=== PATIENT | female | born 1945 | race Two or more races ===

== ENCOUNTER 2025-04-28 10:30 | Inpatient (IN) | payer OTHER, MEDICAID ==
[~2025-04-28] VITALS: Ht 162.6 cm; Wt 70.0 kg
--- NOTE | 2025-04-28 10:40 | ECG ---
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
--- NOTE | 2025-04-28 10:50 | ED.PDOC ---
HPI (NEURO) HPI Comments 79 y.o female with PMHx of hyperlipidemia, Vertigo, and HTN, presents to the ED via EMS for a chief complaint of dizziness associated with nausea and vomiting that started 2 weeks ago but has progressively worsened. Patient reports unable to do activities as she is unable to balance herself when attempting to get up. Patient reports episode today has been worse than previous ones, states she took her vertigo medication (meclizine) this morning but had no relief. Patient also reports recent diarrhea but none today. Patient was given 4mg of Zofran ODT by paramedics on scene which relieved the nausea. She denies any recent falls, dysuria, pain, fever, chills. Per EMS, patient states she receives some sort of ear injection to treat Vertigo, unknown medication. 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 History Family History Family History: Reviewed,noncontributory to illness Social History Smoker: Non-Smoker Alcohol: Denies ETOH Use Drugs: Denies Drug Use Lives In: Home Constitutional: denies: chills, diaphoresis, fatigue, fever, malaise, sweats, weakness, others EENTM: denies: blurred vision, double vision, ear bleeding, ear discharge, ear drainage, ear pain, ear ringing, eye pain, eye redness, hearing loss, mouth pain, mouth swelling, nasal discharge, nose bleeding, nose congestion, nose pain, photophobia, tearing, throat pain, throat swelling, voice changes, others Respiratory: denies: cough, hemoptysis, orthopnea, SOB at rest, shortness of breath, SOB with excertion, stridor, wheezing, others Cardiovascular: denies: chest pain, dizzy spells, diaphoresis, Dyspnea on exertion, edema, irregular heart beat, left arm pain, lightheadedness, palpitations, PND, syncope, others Gastrointestinal: reports: nausea, vomiting; denies: abdomen distended, abdominal pain, blood streaked bowels, constipated, diarrhea, dysphagia, difficulty swallowing, hematemesis, melena, poor appetite, poor fluid intake, rectal bleeding, rectal pain, others Genitourinary: denies: abnormal vagina bleeding, burning, dyspareunia, dysuria, flank pain, frequency, hematuria, incontinence, pain, , vagina discharge, urgency, others Neurological: reports: dizziness; denies: fainting, headache, left sided numbness, left sided weakness, numbness, paresthesia, pre-existing deficit, right sided numbness, right sided weakness, seizure, speech problems, tingling, tremors, weakness, others Musculoskeletal: denies: back pain, gout, joint pain, joint swelling, muscle pain, muscle stiffness, neck pain, others Integumetry: denies: bruises, change in color, change in hair/nails, dryness, laceration, lesions, lumps, rash, wounds, others Allergic/Immunocompromised: denies: Difficulty Healing, Frequent Infections, Hives, Itching, others Hematologic/Lymphatic: denies: anemia, blood clots, easy bleeding, easy bruising, swollen glands, others Endocrine: denies: excessive hunger, excessive sweating, excessive thirst, excessive urination, flushing, intolerance to cold, intolerance to heat, unexplained weight gain, unexplained weight loss, others Psychiatric: denies: anxiety, bipolar disorder, depression, hopeless, panic disorder, schizophrenia, sleepless, suicidal, others All Other Systems: Reviewed and Negative Physical Exam General Appearance: No Apparent Distress, Obese HEENT: Other (Pupils and face symmetric. Moist mucous membranes. ) Neck: Full Range of Motion, Normal Inspection Respiratory: Lungs Clear, No Accessory Muscle Use, No Respiratory Distress, Normal Breath Sounds Cardiovascular: No Edema, No JVD, Regular Rate/Rhythm Breast Exam: Deferred Gastrointestinal: Non Tender, Soft Genitalia: Deferred Pelvic: Deferred Rectal: Deferred Extremities: Normal inspection, Normal range of motion, Non-tender, No pedal edema Neurologic: Alert (Oriented x4), Normal Affect, Normal Mood, Other (Eye opening and head movement reproduces dizziness symptoms) Cerebellar Function: NOT DONE Reflexes: NOT DONE Skin: Dry, Normal Color, Warm Lymphatic: NOT DONE EKG EKG : Comments Sinus rhythm, rate 71, normal intervals, left axis deviation, possible old i nferior or anteroseptal infarct, nonspecific T change Was a procedure done? Was a procedure done?: No Differential Diagnosis (SZ) General Weakness: CVA, Dehydration, Electrolyte imbalance, Labyrinthitis, Meniere's disease, TIA, VBI, Vertigo: central, Vertigo: peripheral, Vestibular neuronitis, Other (Infection such as UTI, anemia, arrhythmia, ID, among others) X-Ray, Labs, Meds, VS Vital Signs Date Time Temp Pulse Resp B/P (MAP) Pulse Ox O2 Delivery O2 Flow Rate FiO2 04/28/25 12:00 55 04/28/25 11:42 98.7 67 12 152/66 (94) 94 98.7 04/28/25 11:42 64 12 94 Nasal Cannula* 2 28 04/28/25 10:36 71 04/28/25 10:33 98.5 76 18 160/76 (104) 95 98.5 Lab Test 04/28/25 11:43 04/28/25 10:49 Range/Units Troponin I High Sensitivity 59 *H 59 *H </=34 ng/L White Blood Count 6.4 4.4-10.8 10^3/uL Red Blood Count 4.71 4.0-5.20 10^6/uL Hemoglobin 15.2 12.2-16.2 g/dL Hematocrit 43.7 36.0-46.0 % Mean Corpuscular Volume 92.9 80.0-100.0 fL Mean Corpuscular Hemoglobin 32.3 H 28.0-32.0 pg Mean Corpuscular Hemoglobin Concent 34.7 32.0-36.0 g/dL Red Cell Distribution Width 13.6 11.8-14.3 % Platelet Count 247 140-450 10^3/uL Mean Platelet Volume 8.1 6.9-10.8 fL Neutrophils (%) (Auto) 72.4 37.0-80.0 % Lymphocytes (%) (Auto) 22.3 10.0-50.0 % Monocytes (%) (Auto) 4.1 0.0-12.0 % Eosinophils (%) (Auto) 0.4 0.0-7.0 % Basophils (%) (Auto) 0.8 0.0-2.0 % Neutrophils # (Auto) 4.6 1.6-8.6 10 ^3/uL Lymphocytes # (Auto) 1.4 0.4-5.4 10 ^3/uL Monocytes # (Auto) 0.3 0-1.3 10 ^3/uL Eosinophils # (Auto) 0 0-0.8 10 ^3/uL Basophils # (Auto) 0.1 0-0.2 10 ^3/uL Nucleated Red Blood Cells 0.1 % Sodium Level 143 136-145 mmol/L Potassium Level 3.0 L 3.5-5.1 mmol/L Chloride Level 106 98-107 mmol/L Carbon Dioxide Level 27 20-31 mmol/L Anion Gap 10 5-15 Blood Urea Nitrogen 18 9-23 mg/dL Creatinine 0.74 0.550-1.02 mg/dL Glomerular Filtration Rate Calc 83 >90 mL/min BUN/Creatinine Ratio 24.3 H 10.0-20.0 Serum Glucose 148 H 74-106 mg/dL Calcium Level 9.8 8.7-10.4 mg/dL Current Medications Medications (Trade) Dose Ordered Sig/Vida Route Start Time Stop Time Status Last Admin Lorazepam (Ativan Inj) 1 mg ONCE ONCE IV 04/28/25 10:45 04/28/25 10:46 DC 04/28/25 11:28 Sodium Chloride 500 ml @ 500 mls/hr Q1H ONCE IV 04/28/25 10:45 04/28/25 11:44 DC 04/28/25 11:29 Potassium Bicarbonate (Klor-Con/Ef) 50 meq ONCE ONCE PO 04/28/25 12:30 04/28/25 12:40 DC 04/28/25 13:27 PROCEDURE(s): HWOCT - HEAD WITHOUT CONTRAST REASON: severe vertigo ORDER NUMBER(s): [id number], ACCESSION NUMBER(s): [id number] CT HEAD WITHOUT CONTRAST Indication: severe vertigo EXAM DATE: 04/28/2025 11:41 AM COMPARISON: None TECHNIQUE: CT of the head without intravenous contrast. RADIATION DOSE: CTDIvol: 51.09 mGy, DLP: 820.21 mGy*cm FINDINGS: There is no intracranial hemorrhage. There is no extra-axial fluid, mass, mass effect or midline shift. The ventricles are midline and normal in size. Basilar cisterns are patent. There are mild periventricular and subcortical white matter chronic microvascular ischemic changes. The paranasal sinuses and mastoids are well-pneumatized. Imaged portion of the orbits are unremarkable. IMPRESSION: 1. No intracranial hemorrhage or mass effect. 2. Mild chronic microvascular ischemic changes. X-Ray, Labs, Meds, VS Comment 79-year-old female with a history of vertigo and dyslipidemia presenting with severe vertigo despite taking meclizine Vitals remarkable for BP 160/76 Exam remarkable for reproducible severe dizziness with eye opening and head movement Rhythm strip independently interpreted by me: Sinus rhythm, rate 71, no ectopy. CT head IMPRESSION: 1. No intracranial hemorrhage or mass effect. 2. Mild chronic microvascular ischemic changes. CBC unremarkable, basic metabolic panel remarkable for potassium 3, serial troponins 59 and 59 Patient treated with the following in the ED: Ativan 1 mg IV, 500 cc 0.9 normal saline IV bolus, effervescent potassium 50 mEq p.o., aspirin 325 mg p.o. On re-evaluation, patient states she is still experiencing mild vertigo. She denies nausea. There have been no new neurologic changes. Plan is to admit the patient for brain MRI, Neurology and Cardiology evaluation. Time of 1ST Reevaluation: 11:20 Reevaluation 1ST: Unchanged Patient Education/Counseling: Diagnosis, Treatment, Prognosis Family Education/Counseling: No Family Present Departure 1 Departure Time of Disposition: 12:52 Impression: Primary Impression: Vertigo Additional Impressions: Hypokalemia Elevated troponin Disposition: ADMITTED INPATIENT Admit to: Tele Condition: Guarded Critical Care Note Critical Care Time?: No Stability Stability form required: No Heart Score Heart Score: Heart Score Response (Comments) Value History N/A 0 EKG N/A 0 Age N/A 0 Risk Factors N/A 0 Troponin N/A 0 Total 0 I personally scribed for BRYCE LUI MD ([email or web address]) on 04/28/25 at 10:50. Electronically submitted by Hollie Moncada ([facility]). BRYCE LUI MD Apr 28, 2025 10:50
[2025-04-28 11:06] LABS: Basophils # (auto) 0.1 10 ^3/uL (0-0.2); Basophils % (auto) 0.8 % (0.0-2.0); Eosinophils # (auto) 0 10 ^3/uL (0-0.8); Eosinophils % (auto) 0.4 % (0.0-7.0); Hematocrit 43.7 % (36.0-46.0); Hemoglobin 15.2 g/dL (12.2-16.2); Lymphocytes # (auto) 1.4 10 ^3/uL (0.4-5.4); Lymphocytes % (auto) 22.3 % (10.0-50.0); Mean Corpuscular Hemoglobin 32.3 pg (28.0-32.0); Mean Corpuscular Hgb Conc. 34.7 g/dL (32.0-36.0); Mean Corpuscular Volume 92.9 fL (80.0-100.0); Monocytes # (auto) 0.3 10 ^3/uL (0-1.3); Monocytes % (auto) 4.1 % (0.0-12.0); Neutrophils # (auto) 4.6 10 ^3/uL (1.6-8.6); Neutrophils % (auto) 72.4 % (37.0-80.0); Nucleated Red Blood Cells % 0.1 %; Platelet Count (auto) 247 10^3/uL (140-450); Red Blood Cells 4.71 10^6/uL (4.0-5.20); Red Cell Distribution Width 13.6 % (11.8-14.3); White Blood Cell 6.4 10^3/uL (4.4-10.8)
[2025-04-28 11:18] LABS: Anion Gap 10 (5-15); Carbon Dioxide 27 mmol/L (20-31); Chloride 106 mmol/L (98-107); Sodium 143 mmol/L (136-145)
[2025-04-28 11:19] LABS: Calcium 9.8 mg/dL (8.7-10.4)
[2025-04-28 11:24] LABS: BUN/Creatinine Ratio 24.3 (10.0-20.0); Blood Urea Nitrogen 18 mg/dL (9-23)
[2025-04-28 11:25] LABS: Glucose 148 mg/dL (74-106)
[2025-04-28] MEDS: LORazepam 2MG/ML-1ML VIAL IV ONE (11:28)
[2025-04-28] MEDS: SODIUM CHLORIDE 0.9% 500 ML IV ONE (11:29)
[2025-04-28 11:42] VITALS: PULSE 64; RESP 12; O2SAT 94
--- NOTE | 2025-04-28 12:25 | DVH ---
CT HEAD WITHOUT CONTRAST Indication: severe vertigo EXAM DATE: 04/28/2025 11:41 AM COMPARISON: None TECHNIQUE: CT of the head without intravenous contrast. RADIATION DOSE: CTDIvol: 51.09 mGy, DLP: 820.21 mGy*cm FINDINGS: There is no intracranial hemorrhage. There is no extra-axial fluid, mass, mass effect or midline shif t. The ventricles are midline and normal in size. Basilar cisterns are patent. There are mild periven tricular and subcortical white matter chronic microvascular ischemic changes. The paranasal sinuses and mastoids are well-pneumatized. Imaged portion of the orbits are unremarkabl e. IMPRESSION: 1. No intracranial hemorrhage or mass effect. 2. Mild chronic microvascular ischemic changes.
[2025-04-28] MEDS: POTASSIUM EFFERVESENT TAB 25 MEQ PO ONE (13:27)
[2025-04-28] MEDS ORDERED: HYDROcodone-ACET 5/325MG TAB PO PRN (14:15)
[2025-04-28] MEDS ORDERED: ONDANSETRON HCL 4 MG/2 ML VIAL IV PRN (14:15)
[2025-04-28] MEDS ORDERED: MECLIZINE HCL 25 MG TAB PO PRN (14:15)
[2025-04-28] MEDS ORDERED: hydrALAZINE HCL 20 MG/ML VL IV PRN (14:15)
[2025-04-28] MEDS ORDERED: DOCUSATE SOD 100 MG CAP PO PRN (14:15)
[2025-04-28] MEDS ORDERED: ACETAMINOPHEN 325 MG TAB PO PRN (14:15)
[2025-04-28] MEDS: ASPirin 325 MG TAB PO ONE (14:31)
[2025-04-28] MEDS ORDERED: MORPHINE SULFATE INJ 2 MG/ml SYRG IV PRN (15:00)
[2025-04-28] MEDS ORDERED: NITROGLYCERIN 0.4 MG SL TAB SL PRN (15:00)
--- NOTE | 2025-04-28 15:01 | DVHHP2 ---
History of Present Illness Reason for Visit: Vertigo History of Present Illness The patient is a 79-year-old female with past medical history of hyperlipidemia, vertigo, and hypertension who presented to [facility] ED with complaint of dizziness. Patient reports she has been having dizziness for the past 2 weeks associated with spinning sensation, unable to balance herself when attempting to get up, nausea, vomiting, getting worse today that prompted this visit. Patient reports she is on steroid injection, currently on meclizine. Patient was seen and evaluated in the ED, laboratory data shows WBC 6.4, platelets 247, sodium 143, potassium 3.0, BUN 18, creatinine 0.74, glucose 148, calcium 9.8, troponin 59, blood pressure 152/66, heart rate 64, temperature 98.7 F, O2 saturation 94% on oxygen. Head CT showed no acute intracranial hemorrhage or mass effect. Please see medication orders section in the computer. On my assessment, son at bedside, patient denied chest pain, no headache, no dizziness, no diaphoresis, currently on oxygen, no nausea, no vomiting, no fever, no chills. Patient was admitted for further evaluation and medical management. Past Medical History High Lipids, HTN, Vertigo Past Surgical History BKA (left) Family History Reviewed, noncontributory to the management of this case. Past Social History The patient lives at home, denies smoking, alcohol or illicit drugs abuse. Review of Systems Constitutional: Yes: Weakness; No: Fever, Chills, Sweats, Malaise, Other Eyes: No: Pain, Vision change, Conjunctivae inflammation, Eyelid inflammation, Other, Redness ENT: No: Ear pain, Ear discharge, Nose pain, Nose discharge, Nose congestion, Mouth pain, Mouth swelling, Throat pain, Throat swelling, Other Respiratory: No: Cough, Dry, Shortness of breath, SOB with excertion, Wheezing, Hemoptysis, Pleuritic Pain, Sputum, Wheezing, Other Cardiovascular: No: Chest Pain, Palpitations, Orthopnea, Paroxysmal Noc. Dyspnea, Edema, Lt Headedness, Other Gastrointestinal: Nausea, Vomiting; No: Abdominal Pain, Diarrhea, Constipation, Melena, Hematochezia, Other Genitourinary: No Dysuria, No Frequency, No Incontinence, No Hematuria, No Retention, No Other Musculoskeletal: other (Left BKA); No: neck pain, shoulder pain, arm pain, back pain, hand pain, leg pain, foot pain Skin: No: Rash, Lesions, Jaundice, Bruising, Other Neurological: Other (Dizziness); No: Weakness, Numbness, Incoordination, Change in speech, Confusion, Seizures Allergies: Coded Allergies: NO KNOWN ALLERGIES (Unverified , 04/28/25) Medications Current Medications Medications Dose Ordered Sig/Vida Route Start Time Stop Time Status Last Admin Dose Admin Aspirin 81 mg DAILY PO 04/29/25 10:00 Atorvastatin Calcium 10 mg HS PO 04/28/25 22:00 Benazepril HCl 10 mg DAILY PO 04/29/25 10:00 Hydralazine HCl 10 mg Q6HP PRN IV 04/28/25 14:15 Sodium Chloride 10 ml Q8HR IV 04/28/25 22:00 Acetaminophen/ Hydrocodone Bitart 1 tab Q4HP PRN PO 04/28/25 14:15 Ondansetron HCl 4 mg Q4HP PRN IV 04/28/25 14:15 Docusate Sodium 100 mg BIDPRN PRN PO 04/28/25 14:15 Acetaminophen 650 mg Q6HP PRN PO 04/28/25 14:15 Meclizine HCl 25 mg Q8HPRN PRN PO 04/28/25 14:15 Exam Vital Signs Vital Signs Date Time Temp Pulse Resp B/P (MAP) Pulse Ox O2 Delivery O2 Flow Rate FiO2 04/28/25 14:00 74 17 135/65 (88) 97 04/28/25 11:42 98.7 98.7 04/28/25 11:42 Nasal Cannula* 2 28 General Appearance: Alert, Oriented X3, Cooperative, No acute distress HEENT: Atraumatic, PERRLA, EOMI, Mucous membr. moist/pink Respiratory: Normal air movement Cardiovascular: Regular rate, Normal S1, Normal S2, No murmurs Abdominal: Normal bowel sounds, Soft, No tenderness, No hepatospenomegaly, No masses Extremities: No clubbing, No cyanosis, No edema, Normal pulses, No tenderness /swelling, Other (Left BKA) Skin: No rashes, No breakdown, No significant lesion Neuro: Normal speech, Normal tone, Sensation intact, Cranial nerves 3-12 NL, Reflexes 2+, Other (Generalized weakness) Psych/Mental Status: Mental status NL, Mood NL Labs/Xrays Labs Test 04/28/25 11:43 04/28/25 10:49 Range/Units Troponin I High Sensitivity 59 *H </=34 ng/L White Blood Count 6.4 4.4-10.8 10^3/uL Red Blood Count 4.71 4.0-5.20 10^6/uL Hemoglobin 15.2 12.2-16.2 g/dL Hematocrit 43.7 36.0-46.0 % Mean Corpuscular Volume 92.9 80.0-100.0 fL Mean Corpuscular Hemoglobin 32.3 H 28.0-32.0 pg Mean Corpuscular Hemoglobin Concent 34.7 32.0-36.0 g/dL Red Cell Distribution Width 13.6 11.8-14.3 % Platelet Count 247 140-450 10^3/uL Mean Platelet Volume 8.1 6.9-10.8 fL Neutrophils (%) (Auto) 72.4 37.0-80.0 % Lymphocytes (%) (Auto) 22.3 10.0-50.0 % Monocytes (%) (Auto) 4.1 0.0-12.0 % Eosinophils (%) (Auto) 0.4 0.0-7.0 % Basophils (%) (Auto) 0.8 0.0-2.0 % Neutrophils # (Auto) 4.6 1.6-8.6 10 ^3/uL Lymphocytes # (Auto) 1.4 0.4-5.4 10 ^3/uL Monocytes # (Auto) 0.3 0-1.3 10 ^3/uL Eosinophils # (Auto) 0 0-0.8 10 ^3/uL Basophils # (Auto) 0.1 0-0.2 10 ^3/uL Nucleated Red Blood Cells 0.1 % Sodium Level 143 136-145 mmol/L Potassium Level 3.0 L 3.5-5.1 mmol/L Chloride Level 106 98-107 mmol/L Carbon Dioxide Level 27 20-31 mmol/L Anion Gap 10 5-15 Blood Urea Nitrogen 18 9-23 mg/dL Creatinine 0.74 0.550-1.02 mg/dL Glomerular Filtration Rate Calc 83 >90 mL/min BUN/Creatinine Ratio 24.3 H 10.0-20.0 Serum Glucose 148 H 74-106 mg/dL Calcium Level 9.8 8.7-10.4 mg/dL PATIENT: LIZETTE MOSESACCT: [id number] UNIT: [id number] : 1945 LOC: ER ROOM / BED: / AGE / SEX: 79 / F ADM STATUS: REG ER SERVICE 1040 ORDERING PHYSICIAN: BRYCE LUI MD PROCEDURE(s): HWOCT - HEAD WITHOUT CONTRAST REASON: severe vertigo ORDER NUMBER(s): [id number], ACCESSION NUMBER(s): [id number] CT HEAD WITHOUT CONTRAST Indication: severe vertigo EXAM DATE: 04/28/2025 11:41 AM COMPARISON: None TECHNIQUE: CT of the head without intravenous contrast. RADIATION DOSE: CTDIvol: 51.09 mGy, DLP: 820.21 mGy*cm FINDINGS: There is no intracranial hemorrhage. There is no extra-axial fluid, mass, mass effect or midline shift. The ventricles are midline and normal in size. Basilar cisterns are patent. There are mild periventricular and subcortical white matter chronic microvascular ischemic changes. The paranasal sinuses and mastoids are well-pneumatized. Imaged portion of the orbits are unremarkable. IMPRESSION: 1. No intracranial hemorrhage or mass effect. 2. Mild chronic microvascular ischemic changes. Assessment/Plan Assessment/Plan Vertigo Nausea and vomiting Hypokalemia Elevated troponin Generalized weakness Plan 1. Admit to telemetry unit 2. Breathing treatment 3. Pain control management 4. Management of fluids and electrolytes 5. Consultation for Neurology/hospitalist 6. Diagnostic tests head CT 7. DVT prophylaxis-on aspirin 8. Repeat labs CBC, CMP in a.m. 9. Continue with current medical management 10. Treatment plan discussed with patient/son and RN. Patient/son verbalized understanding. Plan discussed with: Patient, Other (RN) My Orders Orders - INDIRA JI DNP Procedure Category Date Status Time Aspirin Tablet PHA 04/29/25 In Process 10:00 Atorvastatin (Lipitor) PHA 04/28/25 In Process 22:00 Benazepril Hcl Tablet PHA 04/29/25 In Process (Lotensin Tablet) 10:00 Hydralazine Injection PHA 04/28/25 In Process (Apresoline Inject 14:15 Troponin-I Hs LAB 04/28/25 Logged 20:00 Allergies AFSHAN 04/28/25 In Process 14:11 Code Status CODE 04/28/25 Transmitted 14:11 Sodium Chloride Lock PHA 04/28/25 In Process (Saline Lock Ns) 22:00 Oxygen Per Hour RT 04/28/25 Transmitted 14:11 Hydrocodone-Acet PHA 04/28/25 In Process 5/325mg Tab (Anabel 14:15 Ondansetron Hcl PHA 04/28/25 In Process (Zofran) 14:15 Docusate Sodium PHA 04/28/25 In Process Capsule (Colace 14:15 Fall Risk Precautions AFSHAN 04/28/[address] 14:11 Complete Blood Count LAB 04/29/25 Verified 04:00 Comprehensive LAB 04/29/25 Verified Metabolic Panel 04:00 Cardiac DIET 04/28/25 Transmitted Diet-2gna,Lofat,Lochol Dinner Condition: Serious AFSHAN 04/28/25 In Process 14:11 Acetaminophen Tablet PHA 04/28/25 In Process (Tylenol Tablet) 14:15 Maintain Bed Rest AFSHAN 04/28/25 In Process 14:11 Sequential AFSHAN 04/28/25 In Process Compression Device Meclizine Tablet PHA 04/28/25 In Process (Antivert Tablet) 14:15 Admit ADMIT 04/28/25 Verified 15:00 Nitroglycerin [facility] 04/28/25 Verified Sublingual (Ntrostat 15:00 Morphine Sulfate [facility] 04/28/25 Verified Injection 15:00 Stat Ekg For Chest [facility] 04/28/25 Verified Pain 15:00 Notify Md Of Changes [facility] 04/28/25 Verified From Base 15:00 Lay Out And Detail Drafter For [facility] 04/28/25 Verified 24 Hours 15:00 Emergency Dysrhythmia [facility] 04/28/25 Verified Protocol 15:00 Rhythm Strips Once [facility] 04/28/25 Verified Every Shift 15:00 Oxygen By Nasal RT 04/28/25 Verified Cannula 15:00 Problem List: (1) Vertigo (2) Nausea and vomiting (3) Hypokalemia (4) Elevated troponin (5) Generalized weakness Date of Service: Apr 28, 2025 Billing Provider: INDIRA JI DNP Common Visit Codes: 11779-[id number] INP/OBS CARE (HIGH) INDIRA JI DNP Apr 28, 2025 15:01
[2025-04-28 15:24] LABS: Urine Bacteria FEW /hpf (None Seen); Urine Blood Negative /uL (Negative); Urine Clarity Clear (Clear); Urine Color Light-Yellow (Yellow); Urine Protein, UAD Negative (Negative); Urine Specific Gravity 1.015 (1.001-1.035); Urine Squamous Epithelial Cell FEW /hpf (<5); Urine Urobilinogen Normal (Negative); Urine WBC 15 /HPF (0-5)
[2025-04-28 19:30] VITALS: PULSE 70; RESP 16; O2SAT 94
[2025-04-28 20:00] VITALS: BP 141/75; PULSE 98; RESP 18; TEMP 97.7; O2SAT 93
[2025-04-28] MEDS: ATORVASTATIN 20 MG TAB PO SCH (22:10)
[2025-04-28] MEDS: SODIUM CHLOR 0.9% PF (SALINE LOCK) 10ML VIAL/SYR IV SCH (22:10)
[2025-04-28 22:13] VITALS: PULSE 98; RESP 18; O2SAT 93
[2025-04-28] MEDS ORDERED: MECL12.586 PO (22:50)
[2025-04-28] MEDS ORDERED: ONDA-155 PO (22:50)
[2025-04-28] MEDS ORDERED: PROM25TA10 PO (22:50)
[2025-04-29] VITALS (8 sets, daily range): BP systolic 124–143; BP diastolic 51–81; PULSE 68–86; RESP 16–19; TEMP 97.6–98.1; O2SAT 94–98
[2025-04-29 06:25] LABS: Basophils # (auto) 0.1 10 ^3/uL (0-0.2); Basophils % (auto) 0.7 % (0.0-2.0); Eosinophils # (auto) 0.2 10 ^3/uL (0-0.8); Hematocrit 40.5 % (36.0-46.0); Hemoglobin 14.2 g/dL (12.2-16.2); Lymphocytes % (auto) 26.5 % (10.0-50.0); Mean Corpuscular Hemoglobin 32.7 pg (28.0-32.0); Mean Corpuscular Hgb Conc. 35.2 g/dL (32.0-36.0); Mean Corpuscular Volume 92.9 fL (80.0-100.0); Monocytes # (auto) 0.6 10 ^3/uL (0-1.3); Monocytes % (auto) 7.2 % (0.0-12.0); Neutrophils # (auto) 4.9 10 ^3/uL (1.6-8.6); Neutrophils % (auto) 63.6 % (37.0-80.0); Nucleated Red Blood Cells % 0.1 %; Platelet Count (auto) 243 10^3/uL (140-450); Red Blood Cells 4.35 10^6/uL (4.0-5.20); Red Cell Distribution Width 13.8 % (11.8-14.3); White Blood Cell 7.7 10^3/uL (4.4-10.8)
[2025-04-29 06:30] LABS: Alanine Aminotransferase 15 U/L (7-40); Alkaline Phosphatase 86 U/L (46-116); Anion Gap 9 (5-15); BUN/Creatinine Ratio 20.2 (10.0-20.0); Blood Urea Nitrogen 18 mg/dL (9-23); Carbon Dioxide 29 mmol/L (20-31); Chloride 106 mmol/L (98-107); Glucose 109 mg/dL (74-106); Potassium 3.4 mmol/L (3.5-5.1); Sodium 144 mmol/L (136-145); Total Protein 6.6 g/dL (5.7-8.2)
[2025-04-29 06:31] LABS: Albumin 3.9 g/dL (3.2-4.8); Bilirubin, Total 0.8 mg/dL (0.2-1.0)
[2025-04-29 07:29] LABS: Aspartate Aminotransferase 17 U/L (13-40)
--- NOTE | 2025-04-29 09:29 | DVHINCON2 ---
Date of service: Apr 29, 2025 Referring Physician Markus Reason for Consultation Vertigo History of Present Illness Ms. Padilla is a 79 years old right-handed female with a history of hypertension, dyslipidemia, she came to the [facility] on 04/28/2025 with a chief company of dizziness, nausea, vomiting. At this time, she is alert and fully oriented, she provided the following history with her bilingual son's help About two weeks ago, she developed constant intense dizziness where everything was spinning around, associated with unsteadiness, nausea, vomiting, diarrhea, increased sweating, pale skin, intermittent right ear tinnitus, the patient has to keep herself in the bed motionless, and the symptoms were progressive but was reactive to Antivert treatment. Today she is asymptomatic (lasts for Antivert was 04/28/2025 14:15). She denies associated year pain, headache, focal weakness numbness She has had spells of similar intense dizziness/spinning sensation since age of 23, typically the symptoms only lasts for one day, and it was reactive to Antivert or other medical treatment. He also developed hearing difficulty with the right year. The patient was seen in the [facility], in her ENT is office, and she was said to have right ear Meniere's disease and she is on steroid injection to the right ear periodically Urinalysis, 04/28/2025: WBC: 15, urine leukocyte esterase: 3+ CBC, 04/29/2025: Unremarkable CMP, 04/29/2025: Unremarkable CT head, 04/28/2025: 1. No intracranial hemorrhage or mass effect. 2. Mild chronic microvascular ischemic changes Past Medical History Hypertension, dyslipidemia Past Surgical History Right leg trauma/ Left BKA, tubal ligation, colon scar tissue removal Family History: Patient reports no known family medical history. Family History No major medical problems Social History She is not a tobacco smoker, she denies a history of alcohol or recreational substance abuse Allergies: Coded Allergies: NO KNOWN ALLERGIES (Unverified , 04/28/25) Home Meds Reported Medications Meclizine Hcl (Meclizine Hcl) 12.5 Mg Tab, 25 MG PO, TAB 04/28/25 Promethazine Hcl (Promethazine Hcl) 25 Mg Tab, 1 TAB PO Q6HPRN, #20 TAB 04/28/25 Ondansetron HCl (Ondansetron) 4 Mg Tab, 4 MG PO, TAB 04/28/25 Current Medications Current Medications Medications (Trade) Dose Ordered Sig/Vida Route PRN Reason Start Time Stop Time Status Last Admin Aspirin 81 mg DAILY PO 04/29/25 10:00 Atorvastatin Calcium (Lipitor) 10 mg HS PO 04/28/25 22:00 04/28/25 22:10 Benazepril HCl (Lotensin Tablet) 10 mg DAILY PO 04/29/25 10:00 Hydralazine HCl (Apresoline Injection) 10 mg Q6HP PRN IV SBP>150 04/28/25 14:15 Sodium Chloride (Saline Lock Ns) 10 ml Q8HR IV 04/28/25 22:00 04/29/25 05:08 Acetaminophen/ Hydrocodone Bitart ([place] 5/325MG Tab) 1 tab Q4HP PRN PO MODERATE PAIN (4-6 PAIN SCALE) 04/28/25 14:15 Ondansetron HCl (Zofran) 4 mg Q4HP PRN IV NAUSEA / VOMITING 04/28/25 14:15 Docusate Sodium (Colace Capsule) 100 mg BIDPRN PRN PO FOR CONSTIPATION 04/28/25 14:15 Acetaminophen (Tylenol Tablet) 650 mg Q6HP PRN PO PAIN SCALE 1-3 OR TEMP>100.4 04/28/25 14:15 Meclizine HCl (Antivert Tablet) 25 mg Q8HPRN PRN PO DIZZINESS 04/28/25 14:15 Nitroglycerin (Ntrostat Sublingual) 0.4 mg Q5MINP PRN SL FOR CHEST PAIN 04/28/25 15:00 Morphine Sulfate 2 mg Q30M PRN IV FOR CHEST PAIN 04/28/25 15:00 Review of Systems As above, the other systems are negative Vital Signs Vital Signs Date Time Temp Pulse Resp B/P (MAP) Pulse Ox O2 Delivery O2 Flow Rate FiO2 04/29/25 08:00 16 Nasal Cannula* 2 28 04/29/25 05:00 97.7 83 142/81 (101) 95 97.7 Physical Exam GENERAL EXAM: General: the patient is well developed and nourished. No acute distress. HEENT: Normocephalic, neck is supple, no carotid bruits. No mass. No tenderness to palpation in bilateral mastoid processes RESPIRATORY: Normal respiratory effort with symmetrical lung expansion. Lungs clear to auscultation. CARDIOVASCULAR: Regular rate and rhythm with no murmurs. S1, S2. ABDOMEN: Soft, nontender, normal bowel sound Status post left BKA NEUROLOGICAL: MENTAL STATUS: Awake and alert. Oriented to person, place, time and general ci rcumstances. Able to give personal history. SPEECH, LANGUAGE, HIGHER CORTICAL FUNCTION: no aphasia or dysathria. CRANIAL NERVES: #2: Intact visual holland to confrontation. The optic discs were sharp. #3,4,6: Pupils are equal, round and reactive. EOMs full and conjugate. No nystagmus. #5: Facial sensation intact in all three divisions bilaterally. Mandibular strength intact. #7: Facial muscles symmetrical and strength intact. #8: Hearing either in the right ear to finger rubbing #9,10: Uvula and soft palate rise in the midline. Swallow and voice are normal. #11: Trapezius and sternomastoid strength intact bilaterally. #12: Tongue midline. No fasciculations or atrophy. SENSATION: Sensation to touch and pinprick is normal. MOTOR: Normal tone in the upper and lower extremity. Normal muscle bulk. No fasciculations. No abnormal movements or posturing. Muscle strength of the major groups in the upper extremities is 5/5. Muscle strength of the major groups in the lower extremities is 5/5 (status post left BKA) REFLEXES: Deep tendon reflexes normal and symmetrical. No pathological reflexes. CEREBELLAR/COORDINATION: Finger to nose is normal bilaterally. GAIT/STATION: Within normal limits Labs/Diagnostic Data Labs Test 04/29/25 05:32 04/28/25 20:03 04/28/25 10:40 Range/Units White Blood Count 7.7 4.4-10.8 10^3/uL Red Blood Count 4.35 4.0-5.20 10^6/uL Hemoglobin 14.2 12.2-16.2 g/dL Hematocrit 40.5 36.0-46.0 % Mean Corpuscular Volume 92.9 80.0-100.0 fL Mean Corpuscular Hemoglobin 32.7 H 28.0-32.0 pg Mean Corpuscular Hemoglobin Concent 35.2 32.0-36.0 g/dL Red Cell Distribution Width 13.8 11.8-14.3 % Platelet Count 243 140-450 10^3/uL Mean Platelet Volume 8.5 6.9-10.8 fL Neutrophils (%) (Auto) 63.6 37.0-80.0 % Lymphocytes (%) (Auto) 26.5 10.0-50.0 % Monocytes (%) (Auto) 7.2 0.0-12.0 % Eosinophils (%) (Auto) 2.0 0.0-7.0 % Basophils (%) (Auto) 0.7 0.0-2.0 % Neutrophils # (Auto) 4.9 1.6-8.6 10 ^3/uL Lymphocytes # (Auto) 2.0 0.4-5.4 10 ^3/uL Monocytes # (Auto) 0.6 0-1.3 10 ^3/uL Eosinophils # (Auto) 0.2 0-0.8 10 ^3/uL Basophils # (Auto) 0.1 0-0.2 10 ^3/uL Nucleated Red Blood Cells 0.1 % Sodium Level 144 136-145 mmol/L Potassium Level 3.4 L 3.5-5.1 mmol/L Chloride Level 106 98-107 mmol/L Carbon Dioxide Level 29 20-31 mmol/L Anion Gap 9 5-15 Blood Urea Nitrogen 18 9-23 mg/dL Creatinine 0.89 0.550-1.02 mg/dL Glomerular Filtration Rate Calc 67 >90 mL/min BUN/Creatinine Ratio 20.2 H 10.0-20.0 Serum Glucose 109 H 74-106 mg/dL Calcium Level 9.0 8.7-10.4 mg/dL Total Bilirubin 0.8 0.2-1.0 mg/dL Aspartate Amino Transferase (AST) 17 13-40 U/L Alanine Aminotransferase (ALT) 15 7-40 U/L Alkaline Phosphatase 86 46-116 U/L Total Protein 6.6 5.7-8.2 g/dL Albumin 3.9 3.2-4.8 g/dL Troponin I High Sensitivity 61 *H </=34 ng/L Urine Color Light-yellow Yellow Urine Clarity Clear Clear Urine pH 7.0 5.0-9.0 Urine Specific [place] 1.015 1.001-1.035 Urine Protein Negative Negative Urine Ketones Negative Negative Urine Blood Negative Negative /uL Urine Nitrite Negative Negative Urine Bilirubin Negative Negative Urine Urobilinogen Normal Negative mg/dL Urine Leukocyte Esterase 3+ Negative /uL Urine RBC 2 0 - 4 /hpf Urine Microscopic WBC 15 H 0-5 /HPF Urine Squamous Epithelial Cells Few <5 /hpf Urine Bacteria Few H None Seen /hpf Urine Glucose Normal Normal mg/dL Assessment Vertigo, she had an attack of Meniere's disease, the symptoms have resolved Right ear deafness Plan/Recommendation Monitoring Supportive treatment Telemetry Antivert p.r.n. for vertigo attack No more testing at this time Okay to discharge and follow up with her ENT clinic [facility] from neurologic point of view This medical document was created using an electronic medical record system with [employer] dictation system. Although this document has been carefully reviewed, there may still be some phonetic and typographical errors. These areas are purely typographical due to imperfections of the software programs, and do not reflect any compromise in the patient's medical care. Plan discussed with: Patient, Son, Other ALEJANDRINA DANIELLE MD Apr 29, 2025 09:29
[2025-04-29] MEDS: ASPirin 81 mg TAB PO SCH (09:33)
[2025-04-29] MEDS: BENAZEPRIL HCL 10 MG TAB PO SCH (09:34)
--- NOTE | 2025-04-29 14:42 | DVHPN2 ---
Subjective Patient denies any symptoms time. Reports that her dizziness has resolved. Reviewed: Care Plan, H&P, Labs Changes from previous H/P or p: No Changes General: Per HPI Eyes: No Pain, No Vision change, No Conjunctivae inflammation, No Eyelid inflammation, No Other, No Redness ENT: No Ear pain, No Ear discharge, No Nose pain, No Nose discharge, No Nose congestion, No Mouth pain, No Mouth swelling, No Throat pain, No Throat swelling, No Other Cardiovascular: No Chest Pain, No Palpitations, No Orthopnea, No Paroxysmal Noc. Dyspnea, No Edema, No Lt Headedness, No Other Respiratory: No Cough, No Dry, No Shortness of breath, No SOB with excertion, No Wheezing, No Hemoptysis, No Pleuritic Pain, No Sputum, No Other Gastrointestinal: Nausea, Vomiting; No Abdominal Pain, No Diarrhea, No Constipation, No Melena, No Hematochezia, No Other Genitourinary: No Dysuria, No Frequency, No Incontinence, No Hematuria, No Retention, No Other Musculoskeletal: other (Left BKA); No neck pain, No shoulder pain, No arm pain, No back pain, No hand pain, No leg pain, No foot pain Skin: No Rash, No Lesions, No Jaundice, No Bruising, No Other Objective Vitals Vital Signs Date Time Temp Pulse Resp B/P (MAP) Pulse Ox O2 Delivery O2 Flow Rate FiO2 04/29/25 13:00 97.8 74 16 129/61 (83) 95 97.8 04/29/25 08:00 Nasal Cannula* 2 28 Intake/Output Intake and Output 04/29/25 07:00 Intake Total 810 ml Balance 810 ml Intake Oral 310 ml IV Total 500 ml # Voids 1 General Appearance: Alert, Oriented X3, Cooperative, mild distress HEENT: Atraumatic, PERRLA Lungs: Clear to auscultation, Normal air movement Cardiovascular: Normal S1, Normal S2 Musculoskeletal: Normal sensory function, Normal motor function Neuro: Normal gait, Normal speech Skin: Dry, Intact Psych/Mental Status: Mental status NL, Mood NL Medications Current Medications Medications Dose Ordered Sig/Vida Route Start Time Stop Time Status Last Admin Dose Admin Aspirin 81 mg DAILY PO 04/29/25 10:00 04/29/25 09:33 81 MG Atorvastatin Calcium 10 mg HS PO 04/28/25 22:00 04/28/25 22:10 10 MG Benazepril HCl 10 mg DAILY PO 04/29/25 10:00 04/29/25 09:34 10 MG Hydralazine HCl 10 mg Q6HP PRN IV 04/28/25 14:15 Sodium Chloride 10 ml Q8HR IV 04/28/25 22:00 04/29/25 09:34 10 ML Acetaminophen/ Hydrocodone Bitart 1 tab Q4HP PRN PO 04/28/25 14:15 Ondansetron HCl 4 mg Q4HP PRN IV 04/28/25 14:15 Docusate Sodium 100 mg BIDPRN PRN PO 04/28/25 14:15 Acetaminophen 650 mg Q6HP PRN PO 04/28/25 14:15 Meclizine HCl 25 mg Q8HPRN PRN PO 04/28/25 14:15 Nitroglycerin 0.4 mg Q5MINP PRN SL 04/28/25 15:00 Morphine Sulfate 2 mg Q30M PRN IV 04/28/25 15:00 Laboratory Results Laboratory Tests 04/29/25 05:32 Chemistry Test 04/29/25 05:32 Albumin 3.9 g/dL (3.2-4.8) Calcium Level 9.0 mg/dL (8.7-10.4) Total Protein 6.6 g/dL (5.7-8.2) LFT Test 04/29/25 05:32 Alanine Aminotransferase (ALT) 15 U/L (7-40) Alkaline Phosphatase 86 U/L (46-116) Aspartate Amino Transferase (AST) 17 U/L (13-40) Total Bilirubin 0.8 mg/dL (0.2-1.0) Urinalysis Test 04/28/25 10:40 Urine Color Light-yellow (Yellow) Urine Clarity Clear (Clear) Urine pH 7.0 (5.0-9.0) Urine Specific [place] 1.015 (1.001-1.035) Urine Protein Negative (Negative) Urine Ketones Negative (Negative) Urine Blood Negative /uL (Negative) Urine Nitrite Negative (Negative) Urine Bilirubin Negative (Negative) Urine Urobilinogen Normal mg/dL (Negative) Urine Leukocyte Esterase 3+ /uL (Negative) Urine RBC 2 /hpf (0 - 4) Urine Microscopic WBC 15 /HPF (0-5) H Urine Squamous Epithelial Cells Few /hpf (<5) Urine Bacteria Few /hpf (None Seen) H Urine Glucose Normal mg/dL (Normal) Microbiology Microbiology Date/Time Source Procedure Growth Status 04/28/25 10:40 Voided Urine Urine Culture - Preliminary Resulted Labs and/or images reviewed: Labs reviewed by me, Image(s) reviewed by me Assessment/Plan Assessment/Plan Impression: -elevated troponin, rule out ACS -vertigo, probable Meniere's disease -hypokalemia -UTI Plan: -start IV Rocephin -echocardiogram -neurology consultation: Recommendations reviewed -repeat labs in a.m. reassess for discharge if echocardiogram is unremarkable Total time spent with patient discussing and formulating plan of care: 35 minutes. This medical document was created using an electronic medical record system with [employer] dictation system. Although this document has been carefully reviewed, there may still be some phonetic and typographical errors. These areas are purely typographical due to imperfections of the software programs, and do not reflect any compromise in the patient's medical care. Plan discussed with: Patient, Other (RN) My Orders Orders - QUOC SOSA NP Procedure Category Date Status Time Echo 2d Mode Cardiac US 04/29/25 Logged DOP 14:31 Potassium Effervesent PHA 04/29/25 Logged Tab (Klor-Con/Ef) 14:45 Date of Service: Apr 29, 2025 Billing Provider: QUOC SOSA NP Common Visit Codes: [id number] INP/OBS CARE(HIGH) QUOC SOSA NP Apr 29, 2025 14:42
[2025-04-29] MEDS: POTASSIUM EFFERVESENT TAB 25 MEQ PO ONE (14:55)
[2025-04-29] MEDS: cefTRIAXone 1GM/50ML D5W 50 ML IV ONE (14:57)
[2025-04-30] MEDS: MELATONIN 5 MG TAB ONE (00:47)
[2025-04-30 01:00] VITALS: BP 127/58; PULSE 68; RESP 17; TEMP 98.1; O2SAT 96
[2025-04-30] MEDS: MELATONIN 5 MG TAB PO ONE (01:00)
[2025-04-30 05:00] VITALS: BP 116/57; PULSE 70; RESP 17; TEMP 97.6; O2SAT 96
[2025-04-30 08:00] VITALS: PULSE 62; RESP 16
[2025-04-30 09:00] VITALS: BP 133/65; PULSE 64; RESP 16; TEMP 98.1; O2SAT 94
[2025-04-30 09:08] LABS: Anion Gap 7 (5-15); Carbon Dioxide 29 mmol/L (20-31); Chloride 106 mmol/L (98-107); Potassium 4.2 mmol/L (3.5-5.1); Sodium 142 mmol/L (136-145)
[2025-04-30 09:09] LABS: Calcium 9.8 mg/dL (8.7-10.4)
[2025-04-30 09:14] LABS: BUN/Creatinine Ratio 15.3 (10.0-20.0); Blood Urea Nitrogen 13 mg/dL (9-23)
[2025-04-30 09:15] LABS: Glucose 108 mg/dL (74-106)
[2025-04-30] MEDS: cefTRIAXone 1GM/50ML D5W 50 ML IV SCH (09:57)
[2025-04-30 13:00] VITALS: BP 143/72; PULSE 89; RESP 16; TEMP 98.2; O2SAT 94
[2025-04-30 13:35] VITALS: BP 133/65; TEMP 36.8
--- NOTE | 2025-05-03 14:58 | DVHSR ---
APPROVED REPORT EXAM: Two-dimensional and M-mode echocardiogram with Doppler and color Doppler. Blood Pressure: 129/61 mmHg INDICATION Elevated trops, rule out ACS RISK FACTORS Height: 64, Weight: 154 DIMENSIONS LVDd4.5 (3.8-5.7cm)LA (2D) (1.9-4.0cm)Aortic Root3.2 (2.0-3.7cm) LVDs3.0 (2.5-4.0cm)LA (MM) (1.9-4.0cm)Aortic Cusp Exc1.6 (1.5-2.0cm) EF (%) 62.0 (55-70%)Rt. Atrium (1.9-4.0cm)Asc. Aorta cm IVSd1.1 (0.7-1.1cm)RV (D) (1.8-2.4cm) PWd1.3 (0.7-1.1cm) Mitral Valve MitralMitral Stenosis E wave0.47m/sMV Mean GR.mmHg A wave0.76m/sMV Peak GR.mmHg E/A ratio0.62D MVAcm2 DECEL [id number] 1/2 Timems Aortic Valve Aortic ValveAortic Stenosis V11.36m/Judy Mean GR.4mmHg V21.44m/Judy Peak GR.8mmHg LVOT Diameter1.8 (1.8-2.4cm)Doppler AVA2.40cm2 AI P 1/2 Nmok335.61ms Pulmonic Valve V20.90m/s Tricuspid Valve TR Velocity2.20m/s [id number] Conclusion Sinus rhythm. Concentric LVH. Mild left atrial enlargement. Valves appear to be structurally normal. Left ventricular function is preserved at 60% with normal RV function. Mild to moderate aortic insufficiency with moderate pulmonic insufficiency. Small pericardial effusion not hemodynamically significant. No intracardiac masses thrombi or vegetations noted.
== END 2025-04-30 14:15 | disposition home or self-care (01) | DRG 690 ==
LOC: EDBD 10:30 → ER 10:30 → OVERFLOW 15:00 → TELE-EAST 21:40
PROVIDERS: ADMIT Nurse Practitioner Acute Care; ATTEND Nurse Practitioner Acute Care
DX: N39.0 Urinary tract infection, site not specified (principal); I24.9 Acute ischemic heart disease, unspecified; H81.01 Meniere's disease, right ear; E87.6 Hypokalemia; R79.89 Other specified abnormal findings of blood chemistry; E78.5 Hyperlipidemia, unspecified; I10 Essential (primary) hypertension; Z89.512 Acquired absence of left leg below knee
CPT/HCPCS: 36415; 70450; 80048; 80053; 81001; 84484; 85025; 87086; 93005; 93306; 96361; 96374; G0378